=== PATIENT | female | born 1990 | race Two or more races ===

== ENCOUNTER 2023-11-28 17:33 | Emergency (ER) | payer OTHER ==
[2023-11-28 17:38] VITALS: BP 117/74; PULSE 76; RESP 20; TEMP 98.4; BMI 24.1
[2023-11-28] MEDS ORDERED: KETOROLAC TROMETHAMINE 30 MG/1 ML VIAL ONE (20:24)
[2023-11-28] MEDS ORDERED: ACETAMINOPHEN 500 MG TABLET (FP) ONE (20:24)
[2023-11-28] MEDS: ACETAMINOPHEN 500 MG TABLET (FP) PO ONE (20:28)
[2023-11-28] MEDS: KETOROLAC TROMETHAMINE 30 MG/1 ML VIAL IM ONE (20:28)
== END 2023-11-28 21:50 | disposition home or self-care (01) ==
LOC: JERFT 17:33
PROC: 3E0133Z Introduction of Anti-inflammatory into Subcutaneous Tissue, Percutaneous Approach (ICD-10-PCS; principal; 2023-11-28)
DX: S43.401A Unspecified sprain of right shoulder joint, initial encounter (principal); R20.0 Anesthesia of skin; R20.2 Paresthesia of skin; W50.2XXA Accidental twist by another person, initial encounter
CPT/HCPCS: 73030-TC-RT-FY; 99284-25